=== PATIENT | female | born 1950 | race Caucasian/White ===

== ENCOUNTER → 2017-08-28 | Outpatient (CLI) | payer MEDICARE, OTHER ==
[~2017-08-28] MED LIST: ADULT LOW DOSE81 MG PO; ADVAIR 250-501 EACH INH; ADVAIR HFA115 MCG/21 INH; ASPIR 8181 MG PO; ASPIRIN EC81 M1; ASPIRIN325 PO; B12INJ IM; CALCIUM 500 +1 EAC5 PO; CENTRUM SILVER1 EAC4 PO; COLACE 100 MG100 MG PO; COSOPT EYE DROPS5 ML OP; COSOPT EYE DROPS5 ML OPHTHALMIC; EVISTA PO; FROVA2.5 MG; FROVA2.5 MG PO; HYDROCODON-ACE1 EAC2; HYDROCODONE-AP1 EAC6 PO; HYDROCODONE-APA1 TA1 PO; LUMIGAN2.5 M1 OPHTHALMIC; MULTI VITAMIN1 EACH; ONDANSETRON HCL4 M2 SUBLING; OXYCODONE HCL 55 MG PO; PERCOCET PO; PROBIOTIC1 EAC1 PO; PROLOPRIM100 MG PO; SINGULAIR 10 MG10 M1 PO; TOPAMAX 25 MG T25 M1 PO; TRAMADOL 50 MG50 MG PO; TRAVATAN 0.004%5 ML OP; TROKENDI XR100 MG PO; TUMS PO; URIBEL CAPSULE1 EACH PO; VENTOLIN HFA 1818 GM INH; VITAMIN B-12500 MCG PO; VITAMIN D1000 UNI1 PO; VITAMIN K100 MCG PO; XARELTO10 MG PO
[2017-08-28 09:43] LABS: ABSOLUTE EOSINOPHILS 0.1 thou/uL (0.0-0.7); ABSOLUTE LYMPHOCYTES 1.1 thou/uL (0.8-5.3); ABSOLUTE MONOCYTES 0.4 thou/uL (0.0-1.2); ABSOLUTE NEUTROPHILS 2.9 thou/uL (1.6-8.1); BASOPHILS 0.8 %; EOSINOPHILS 3.2 %; HEMATOCRIT 38.6 % (37.0-47.0); HEMOGLOBIN 12.8 gm/dL (12.0-15.0); LYMPHOCYTES 23.7 %; MCH 28.7 pg (26.0-34.0); MCHC 33.1 g/dL (28.0-37.0); MCV 86.8 fL (80.0-100.0); MONOCYTES 9.2 %; MPV 9.2 fl. (7.2-11.1); NUCLEATED RBCS 0 /100WBC; PLATELET COUNT* 204 thou/uL (150-400); POLYS 63.1 %; RBC 4.44 mil/uL (4.20-5.00); RDW-CV 14.6 % (10.5-14.5); WBC 4.6 thou/uL (4.0-11.0)
--- NOTE | 2017-08-28 09:57 | EKG ---
[place] [address] ELECTROCARDIOGRAM REPORT Name: BECK DUPREE Room: [facility]#: [id number] Admission: 08/28/17 Attend Phys: Ryan Louis MD Discharge: Date of : 46 Report #: [id number] THIS REPORT FOR: //name// [facility] Test Date: 2017-08-28 Test Time: 09:30:48 Pat Name: BECK DUPREE Department: Room: Gender: F [employer]: : 1950 Requested By: Ryan Louis Order Number: [id number] Reading MD: Jose Warren Measurements Intervals [place] Rate: 52 P: -30 GA: 175 QRS: -29 QRSD: 99 T: 18 QT: 433 QTc: 403 Interpretive Statements Sinus bradycardia Left ventricular hypertrophy Compared to ECG 11/20/2016 11:44:14 Left ventricular hypertrophy now present Left-axis deviation no longer present rate slowed Electronically Signed On 08-28-2017 9:57:35 CDT by Jose Warren [email or web address] <ELECTRONICALLY SIGNED> By: Jose Warren MD, [facility] 08/28/1757 9 9 Jose Warren MD, FAC /EPI
[2017-08-28 09:58] LABS: CALCIUM 8.9 mg/dL (8.5-10.1); CREATININE 0.8 mg/dL (0.6-1.3); POTASSIUM 4.1 mmol/L (3.5-5.1)
== END ==
LOC: M.LAB 09:05
PROVIDERS: Urology
DX: Z01.818 Encounter for other preprocedural examination (principal); I51.7 Cardiomegaly; N30.10 Interstitial cystitis (chronic) without hematuria; R00.1 Bradycardia, unspecified; J45.40 Moderate persistent asthma, uncomplicated

== ENCOUNTER → 2018-01-08 | Outpatient (CLI) | payer OTHER | LOC: M.CT 12:38 | DX: Z13.6 Encounter for screening for cardiovascular disorders (principal) ==

== ENCOUNTER → 2018-01-08 | Outpatient (CLI) | payer MEDICARE, OTHER | LOC: M.RAD 12-19 16:38 | DX: Z12.31 Encounter for screening mammogram for malignant neoplasm of breast (principal); M85.80 Other specified disorders of bone density and structure, unspecified site; J45.40 Moderate persistent asthma, uncomplicated; I51.9 Heart disease, unspecified; Z78.0 Asymptomatic menopausal state; Z82.49 Family history of ischemic heart disease and other diseases of the circulatory system; Z80.3 Family history of malignant neoplasm of breast ==

== ENCOUNTER → 2019-01-14 | Outpatient (CLI) | payer MEDICARE, OTHER | LOC: M.RAD 01-09 18:09 | DX: Z12.31 Encounter for screening mammogram for malignant neoplasm of breast (principal); J20.9 Acute bronchitis, unspecified; J45.991 Cough variant asthma; K21.0 Gastro-esophageal reflux disease with esophagitis; N30.10 Interstitial cystitis (chronic) without hematuria; J84.9 Interstitial pulmonary disease, unspecified; G43.909 Migraine, unspecified, not intractable, without status migrainosus ==

== ENCOUNTER → 2021-02-23 | Outpatient (CLI) | payer MEDICARE ==
[~2021-02-23] MED LIST changes: +CALCIUM CITRATE PO; +COSOPT OCUMETER10 M1 EA. EYE; +CYMBALTA30 MG PO; +CYMBALTA60 MG PO; +EVISTA60 MG PO; +FLORANEX TABLE1 EACH PO; +HYDROCODON-ACE1 EAC8 PO; +K2 PO; +LACTOFERRIN PO; +METHYL FOLATE PO; +OMEPRAZOLE40 MG PO; +PROBIOTIC1 EAC2 PO; +SUPER THERAVIT1 EACH PO; +SYMBICORT160 MCG/4. INH; +TOPAMAX50 MG PO; +TUMERIC PO; +URO-MP CAPSULE1 EACH PO; +VITAMIN B12 PO; +VITAMIN D3 PO; +[UNRECOGNIZED DRUG - OTHER]; +[UNRECOGNIZED DRUG - OTHER]; +[UNRECOGNIZED DRUG - OTHER] INH
== END ==
LOC: M.PC 08:28
PROVIDERS: ATTEND Anesthesiology Pain Medicine
DX: M47.812 Spondylosis without myelopathy or radiculopathy, cervical region (principal); M50.30 Other cervical disc degeneration, unspecified cervical region; M79.7 Fibromyalgia; M48.02 Spinal stenosis, cervical region; R22.0 Localized swelling, mass and lump, head; M25.559 Pain in unspecified hip; Z88.8 Allergy status to other drugs, medicaments and biological substances; Z79.82 Long term (current) use of aspirin; Z79.899 Other long term (current) drug therapy